=== PATIENT | female | born 1940 | race Caucasian/White ===

== ENCOUNTER → 2016-08-14 | Outpatient (CLI) | payer OTHER | END | disposition home or self-care (01) | LOC: YCFC.O 08:12 | PROVIDERS: ATTEND Nurse Practitioner Family | DX: E78.2 Mixed hyperlipidemia (principal); J44.9 Chronic obstructive pulmonary disease, unspecified; I63.9 Cerebral infarction, unspecified; Z13.29 Encounter for screening for other suspected endocrine disorder ==

== ENCOUNTER 2016-09-07 21:28 | Inpatient (IN) | payer OTHER ==
[2016-09-07] MEDS ORDERED: SODIUM CHLORIDE 0.9% 1000ML 500 ML IVS ONE (21:40)
--- NOTE | 2016-09-07 22:05 | ED.PDOC ---
History of Present Illness - General Chief Complaint: Respiratory Problem Stated Complaint: fever and short of breath Time Seen by Provider: 09/07/16 21:36 Source: patient, RN notes reviewed, Vital Signs reviewed, family Additional Information: 3 days of fever and cough. Pt has a history of COPD and she is a vasculopath (h/ o CVA and Femoral Artery Bypass Surgery in the past). Pt brought to ER by her niece who is an ANIMAL RESEARCHER and states that Pt's POX on RA at home was 86%. Pt with intermittent cough. - History of Present Illness Timing/Duration: other - 3 to 4 days Severity: moderate Improving Factors: nothing Worsening Factors: movement Associated Symptoms: cough, fever/chills Review of Systems - Review of Systems Constitutional: States: see HPI, fever EENTM: States: no symptoms reported Respiratory: States: see HPI, cough Cardiology: States: no symptoms reported Gastrointestinal/Abdominal: States: no symptoms reported Genitourinary: States: no symptoms reported Musculoskeletal: States: no symptoms reported Skin: States: no symptoms reported Neurological: States: no symptoms reported Endocrine: States: no symptoms reported Hematologic/Lymphatic: States: no symptoms reported Past Medical History (General) - Patient Medical History Hx of COPD: Yes Physical Exam - Physical Exam General Appearance: Alert, Comfortable, Frail Eye Exam: bilateral normal Ears, Nose, Throat: hearing grossly normal, normal ENT inspection, normal pharynx Neck: non-tender, full range of motion, supple, normal inspection Respiratory: decreased breath sounds - in right base, rhonchi - occasional Cardiovascular/Chest: tachycardia Gastrointestinal/Abdominal: non tender, soft Back Exam: normal inspection Extremity: normal range of motion, non-tender Neurologic: registered veterinary technician II-XII nml as tested, no motor/sensory deficits, alert, normal mood/affect, oriented x 3 Skin Exam: normal color Lymphatic: no adenopathy Progress - Progress Progress: 09/07/16 22:46 Patient with signs and symptoms consistent with Pneumonia. Will treat with antibiotics, steroids, and IV fluids and call Hospitalist for admission given Pt's age, clinical condition, and comorbidities. - Results/Orders Results/Orders: 09/07/16 21:39 BLOOD CULTURE Stat 09/07/16 21:40 URINALYSIS Stat 09/07/16 22:32 cefTRIAXone SODIUM [Rocephin] 1 gm Sodium Chl 0.9% 50Ml Min-Bag+ [NS 50ml MINI -BAG+] 50 ml IVPB ONCE 09/07/16 22:41 ED Intent to Admit Routine Laboratory Results - last 24 hr 09/07/16 09/07/16 09/07/16 21:57 21:57 21:57 WBC 26.5 H* RBC 4.28 Hgb 10.7 L Hct 32.7 L MCV 76.5 L MCH 25.0 L MCHC 32.8 L RDW 17.7 H Plt Count 433 H MPV 7.4 Absolute Neuts (auto) Not Reportable Absolute Lymphs (auto) Not Reportable Absolute Monos (auto) Not Reportable Absolute Eos (auto) Not Reportable Neutrophils % Not Reportable Neutrophils % (Manual) 91.0 Lymphocytes % Not Reportable Lymphocytes % (Manual) 6.0 Monocytes % Not Reportable Monocytes % (Manual) 2.0 Eosinophils % Not Reportable Basophils % Not Reportable Band Neutrophils 1.0 Hypochromia 1+ Platelet Estimate Increased Microcytosis 1+ Sodium 137 Potassium 4.4 Chloride 104 Carbon Dioxide 22 Anion Gap 15.4 BUN 37 H Creatinine 1.41 H BUN/Creatinine Ratio 26.2 H Random Glucose 129 H Serum Osmolality 284.2 Lactic Acid 1.7 Calcium 8.8 Total Bilirubin 0.7 AST 25 ALT 19 Alkaline Phosphatase 83 Serum Total Protein 7.7 Albumin 3.1 L Globulin 4.6 H Albumin/Globulin Ratio 0.7 L - EKG/XRAY/CT XRAY: chest - Right lower lung field consolidation Departure - Departure Clinical Impression: Acute kidney injury Pneumonia, organism unspecified Qualifiers: Laterality: right Lung location: lower lobe of lung Qualified Code(s): J18.9 - Pneumonia, unspecified organism COPD (chronic obstructive pulmonary disease) Qualifiers: COPD type: emphysema Emphysema type: unspecified Qualified Code(s): J43.9 - Emphysema, unspecified Time of Disposition: 22:49 Disposition: Admit Patient Referrals: Mai Yang NP [Primary Care Provider] - 1-2 Weeks Decision To Admit - Decistion To Admit Decision to Admit Reason: Medical Nature - Pneumonia Decision to Admit Date: 09/07/16 Decision to Admit Time: 22:41
--- NOTE | 2016-09-07 22:10 | RAD ---
EXAM DESCRIPTION: Chest,2 Views CLINICAL HISTORY: fever and short of breath COMPARISON: None FINDINGS: Cardiac silhouette is within normal limits. Abnormal opacity of the right lower lung could be secondary to collapse/atelectasis. Endobronchial lesion cannot be excluded. This could also be secondary to an infectious process. Recommend short-term follow-up. EKG leads project over the chest. Nodular-like opacity projecting inferior to the nine left posterior rib could represent patient's nipple shadow. Recommend follow-up. There is no acute osseous process visualized. IMPRESSION: Abnormal opacity at the right lower lung suggests collapse/atelectasis. This could be secondary to an endobronchial lesion versus mucous secretions. Other etiologies including an infectious process are consideration. Short-term follow-up recommended. Electronically signed by: Gregorio Vaughn MD 09/07/2016 10:09 PM CDT
[2016-09-07] MEDS ORDERED: AZITHROMYCIN 250 MG TAB PO ONE (22:32)
[2016-09-07] MEDS ORDERED: cefTRIAXone SODIUM 1 GM in SODIUM CHL 0.9% 50ML MIN-BAG+ 50 ML IVPB ONE (22:32)
[2016-09-07] MEDS ORDERED: methylPREDNISolone SODIUM SUC 125 MG/2 ML VIAL IV ONE (22:41)
[2016-09-07] MEDS ORDERED: cefTRIAXone SODIUM 1 GM VIAL ONE (22:44)
[2016-09-07] MEDS ORDERED: SODIUM CHL 0.9% 50ML MIN-BAG+ 50 ML IVPB ONE (22:44)
--- NOTE | 2016-09-07 22:55 | HP ---
SUPERVISING PHYSICIAN: Scotty Estevez MD CHIEF COMPLAINT: Fever and cough. HISTORY OF PRESENT ILLNESS: This is a 75 year-old female patient who recently moved to [place] from [place]. She is staying with her niece. She has never been and has no children. Her niece was a longtime COMMUNICATION CONSULTANT at [facility]. The patient reports that on Friday she started feeling poorly , she had a low grade temperature of 99 and was rather lethargic. She slept most of the day and that is not usual for her. Niece went out of town for about 24 hours and this afternoon when her niece returned from her trip her fever was quite high, they thought well over 100 and her oxygen saturations were 86% at home. She was having hazy vision and had a wet cough but could not cough anything up. She was very short of breath. Her niece reported she was tachypneic. She has a significant history of chronic obstructive pulmonary disease as well as a long-term smoker and she brought her to the Emergency Room. In the Emergency Room the patient was found to have a white count of 26.5 and her BUN was 37, creatinine was 1.40. She received 500 cc of normal saline. Her chest x-ray showed she had a right lower lobe pneumonia. She was given 125 mg of Solu-Medrol and she was given 1 gram of Rocephin as well as 500 mg of azithromycin. In the Emergency Room, her vital signs showed a temperature of 99.6, heart rate 108, blood pressure 93/60, respiratory rate 22, oxygen saturation 94% on 2 liters nasal cannula. I was called for hospital admission. PAST MEDICAL HISTORY: 1. Chronic obstructive pulmonary disease. 2. Hypertension. 3. Stroke with right-sided weakness about 3 years ago. 4. Hyperlipidemia. 5. Basal cell carcinoma on the forehead. PAST SURGICAL HISTORY: 1. Carotid endarterectomy. 2. Femoral artery bypass surgery. CURRENT MEDICATIONS: Per EMR and awaiting verification. ALLERGIES: NO KNOWN DRUG ALLERGIES. SOCIAL HISTORY: She lives with her niece, she has recently moved form [place]. She is single, she has no children. She has smoked half pack of cigarettes per day for well over 30 years. She denies any ETOH or illicit drug use. REVIEW OF SYSTEMS: GENERAL: Positive for fever and fatigue. Negative for weight changes. HEENT: Positive for vision changes, negative for sinus symptoms, ear pain or sore throat. RESPIRATORY: Positive for wheezing, coughing and shortness of breath. CARDIAC: Positive for palpitations, although she has not had any in the last day or so but negative for chest pain or tachycardia. GASTROINTESTINAL: Negative for abdominal pain, nausea, vomiting, diarrhea or constipation. SKIN: Positive for basal cell carcinoma on her forehead. She is currently being treated for this as well as an SK on her back. EXTREMITIES: Denies swelling. NEUROLOGICAL: Negative for headache, seizures or dizziness. PHYSICAL EXAMINATION: VITAL SIGNS: Temperature 101.3, heart rate 86, blood pressure 168/61, respiratory rate 20, 02 saturation 94%. GENERAL: This is a 75 year-old female patient who is lying in her hospital bed. HEENT: Normocephalic and atraumatic. Pupils equal and reactive. Oropharynx is clear. Oral mucous membranes are moist. She has poor dentition. NECK: Supple without masses. There is no right jugular venous distention. Trachea is midline. CHEST: Bilateral rhonchi with some diffuse expiratory wheezing and diminished at the bases, more prominently on the right lower lobes. CARDIOVASCULAR: Regular rate and rhythm. ABDOMEN: Soft, non-tender, nondistended. Bowel sounds are positive. EXTREMITIES: No cyanosis, clubbing, or edema. NEUROLOGIC: She is awake, alert and oriented x3. SKIN: She has a healing scabbed area in her center forehead. LABORATORY: BUN 37, creatinine 1.41, glucose 129. WBC 26,500, hemoglobin 10.7, hematocrit 32.7, platelet count 433,000. Urinalysis has not been collected. Chest x-ray shows abnormal opacity in the right lower lung suggesting collapse or atelectasis and could be secondary to endobronchial lesion versus mucus secretions and other etiologies include infectious process, Her chest x-ray was per radiology interpretation. All other labs and films have been reviewed via the EMR. ASSESSMENT: 1. Right lower lobe pneumonia most likely community acquired with consideration of strep pneumonia and will be awaiting blood culture and sputum culture. 2. Acute on chronic obstructive pulmonary disease exacerbation. 3. Fever up to 101.3, most likely due to #1. 4. Leukocytosis, most likely due to #1 but awaiting flu swab results. 5. Acute renal failure with no history of any renal insufficiency. 6. Mild thrombocytopenia. 7. Hypertension. 8. History of CVA. 9. Hyperlipidemia. 10. Basal cell carcinoma. 11. History of palpitations with heart rate reported up to 150 [id number] per family members. PLAN: We will admit the patient to the hospital. I have done a flu swab. We have initiated the pneumonia protocol. I have started PPI for ulcer prophylaxis and Lovenox for DVT prophylaxis. I will order an EKG to get a baseline of her cardiac rhythm. I have ordered a sputum culture. We will culture her urine when it is received. Continue the Rocephin and azithromycin. I will give her 1 liter of normal saline and maybe we can improve her renal function. Give her some Mucinex as well as some Tessalon Perles. Breathing treatments have been ordered. She received some steroids in the Emergency Room. I will not order those until in the morning and she may need some additional doses of steroids. We will evaluate that in the morning. We will continue to monitor the patient closely and followup as needed. Dr. Estevez is the collaborating physician and available for consultation. #[id number] [facility]
[2016-09-08] MEDS ORDERED: LEVALBUTEROL NEBS 1.25 MG/3 ML VIAL NEB PRN (00:11)
[2016-09-08] MEDS ORDERED: SODIUM CHLORIDE 0.9% (FLUSH) 10 ML SYG IV PRN ×2 (00:11→00:18)
[2016-09-08] MEDS ORDERED: ONDANSETRON INJ 4 MG/2 ML VIAL IV PRN (00:22)
[2016-09-08] MEDS ORDERED: ACETAMINOPHEN 325 MG TAB PO PRN (00:22)
[2016-09-08] MEDS ORDERED: IPRATROPIUM/ALBUTEROL 3 ML VIAL INH SCH (00:30)
[2016-09-08] MEDS ORDERED: IV SET AND CAP CHANGE INJ INJ SCH ×2 (00:30)
[2016-09-08] MEDS ORDERED: DEXTROSE 50% 25 GM/50 ML SYG IV PRN (00:31)
[2016-09-08] MEDS ORDERED: GLUCAGON INJ 1 MG VIAL SUBCU PRN (00:31)
[2016-09-08] MEDS ORDERED: SODIUM CHLORIDE 0.9% 1000ML 1,000 ML IVS PRN (00:36)
[2016-09-08] MEDS ORDERED: ENOXAPARIN SODIUM 30 MG/0.3 ML SYG SUBCU SCH ×2 (01:00→21:00)
[2016-09-08] MEDS: BENZONATATE PERLES 100 MG CAP PO PRN (01:45)
[2016-09-08] MEDS: guaiFENesin ER TAB 600 MG TAB PO SCH ×2 (01:46→08:48)
[2016-09-08] MEDS: PANTOPRAZOLE SODIUM IV 40 MG VIAL IV SCH (06:27)
[2016-09-08] MEDS: INSULIN LISPRO 100 UNITS/ML PEN SUBCU SCH ×4 (08:23→22:01)
[2016-09-08] MEDS: IPRATROPIUM/ALBUTEROL 3 ML VIAL NEB SCH ×4 (08:25→19:25)
[2016-09-08] MEDS ORDERED: cefTRIAXone SODIUM 1 GM VIAL ONE (08:25)
[2016-09-08] MEDS ORDERED: SODIUM CHL 0.9% 50ML MIN-BAG+ 50 ML IVPB ONE (08:25)
--- NOTE | 2016-09-08 08:33 | RAD ---
PROCEDURE: Chest,2 Views CLINICAL HISTORY: Pneumonia INDICATION: Same as above COMPARISON: 09/07/2016 TECHNIQUE: PA and and lateral chest radiographs were obtained. FINDINGS: There is a large opacity abutting the right cardiac contour and seen in the expected location of the right lower lobe of the lung and suspicious for right lower lobe atelectasis and less likely an infiltrate. This finding remains unchanged and needs to be further assessed with a CT of the chest to rule out an endobronchial lesion being responsible for this finding There are no pleural effusions or pneumothoraces The cardiomediastinal silhouette is otherwise unremarkable for patient's age and sex. IMPRESSION: There is a large opacity abutting the right cardiac contour and seen in the expected location of the right lower lobe of the lung and suspicious for right lower lobe atelectasis and less likely an infiltrate. This finding remains unchanged and needs to be further assessed with a CT of the chest to rule out an endobronchial lesion being responsible for this finding Electronically signed by: Joseph Johnson MD 09/08/2016 8:32 AM CDT
--- NOTE | 2016-09-08 10:10 | PCM.CORE ---
Physician DVT/VTE - Prophylaxis Currently: Patient already on anticoagulation therapy - Nurse DVT Assessment & Total Each Risk Factor Represents 3 Points: Age over 75 years DVT Assessment Score: 3 - 3-4 High Risk Treatments: Early Ambulation *, Sequential Compression Device
[2016-09-08] MEDS: CLOPIDOGREL 75 MG TAB PO SCH (10:51)
[2016-09-08] MEDS: LISINOPRIL 10 MG TAB PO SCH (10:51)
[2016-09-08] MEDS: cefTRIAXone SODIUM 1 GM in SODIUM CHL 0.9% 50ML MIN-BAG+ 50 ML IVPB SCH (10:53)
[2016-09-08] MEDS: methylPREDNISolone SODIUM SUC 40 MG/ML VIAL IV SCH ×2 (15:33→20:30)
--- NOTE | 2016-09-08 16:27 | PN ---
DATE: 09/08/16 SUPERVISING PHYSICIAN: Scotty Estevez M.D. SUBJECTIVE: The patient is sitting up in her hospital bed. She states she is feeling much better. She had a very good night's sleep. She denies any chest pain, shortness of breath, nausea, vomiting, diarrhea or fever. OBJECTIVE: She is afebrile, but she had 101.3 at midnight last night. Heart rate 61, blood pressure 117/71, respiratory rate 18, oxygen saturation has ranged between 92 and 98%. RESPIRATORY: She does have a few expiratory wheezes especially in the left apices and she is still somewhat diminished on the right lower lobe. CARDIAC: Mostly irregular rhythm, occasionally has started having an irregular rhythm that looks like sinus rhythm with PACs and occasional PVCs. Normal rate. ABDOMEN: Soft, nondistended, non-tender. Bowel sounds are positive. EXTREMITIES: No cyanosis, clubbing or edema. NEUROLOGIC: She is awake, alert and oriented times three. LABORATORY: WBCs have dropped to 23.9, hemoglobin is stable at 10.7 as well as hematocrit is 33.7, platelets have normalized at 393. Sodium 137, potassium 4.4 , chloride 106, carbon dioxide 22, BUN 33, creatinine has normalized at 1.16, blood glucose 150. Urine shows 100 urine protein, trace of lysed urine blood, moderate leukocyte esterase and greater than 50 WBCs. Flu swab was negative. Preliminary blood cultures are negative to date and we are still awaiting her urine culture. Chest x-ray per radiology interpretation shows there is a large opacity abutting the right cardiac contour and seen in the expected location of the right lower lobe of the lung and suspicious for right lower lobe atelectasis and less likely for an infiltrate. This finding remains unchanged and needs to be further assessed with a CT of the chest to rule out an endobronchial lesion being responsible for this finding. All other labs and films have been reviewed via the EMR. ASSESSMENT: 1. Right lower lobe pneumonia most likely community acquired with consideration of strep pneumonia and will be awaiting blood culture and sputum culture. 2. Acute on chronic obstructive pulmonary disease exacerbation. 3. Fever up to 101.3, most likely due to #1. 4. Leukocytosis, most likely due to #1 but awaiting flu swab results. 5. Acute renal failure with no history of any renal insufficiency. 6. Mild thrombocytopenia. 7. Hypertension. 8. History of CVA. 9. Hyperlipidemia. 10. Basal cell carcinoma. 11. History of palpitations with heart rate reported up to 150 [id number] per family members presently showing sinus rhythm with PACs and occasional PVCs with rates in the 60s per school lunch monitor. PLAN: We will continue present supportive care, including her antibiotics. She is showing clinical improvement daily. She needs a CT of the chest and since she has been sick with fever I have not ordered that as yet, but hopefully we can do that tomorrow. I am not sure if they want it with or without contrast but her renal function has normalized. I have continued her home medications. I have ordered routine labs. She is getting a low dose of Solu-Medrol overnight and I have started her on oral prednisone tomorrow morning. We will continue to monitor the patient closely and followup as clinically indicated. Dr. Estevez is the collaborating physician available for consultation. #[id number] [facility] CENTERMoustapha
[2016-09-08] MEDS ORDERED: AZITHROMYCIN 250 MG TAB PO SCH (21:00)
[2016-09-08] MEDS ORDERED: SIMVASTATIN 10 MG TAB PO SCH (21:00)
[2016-09-09] MEDS ORDERED: SODIUM CHL 0.9% 50ML MIN-BAG+ 50 ML IVPB ONE ×2 (00:20→08:00)
[2016-09-09] MEDS ORDERED: cefTRIAXone SODIUM 1 GM VIAL ONE ×2 (00:21→08:00)
[2016-09-09] MEDS: cefTRIAXone SODIUM 1 GM in SODIUM CHL 0.9% 50ML MIN-BAG+ 50 ML IVPB SCH ×3 (00:23→10:16)
[2016-09-09] MEDS: BENZONATATE PERLES 100 MG CAP PO PRN (01:13)
[2016-09-09] MEDS: guaiFENesin ER TAB 600 MG TAB PO SCH ×2 (01:26→10:19)
[2016-09-09] MEDS ORDERED: methylPREDNISolone SODIUM SUC 40 MG/ML VIAL ONE (05:25)
[2016-09-09] MEDS: methylPREDNISolone SODIUM SUC 40 MG/ML VIAL IV SCH (05:26)
--- NOTE | 2016-09-09 06:52 | RAD ---
Procedure: XR CHEST 2 VIEWS Exam Date: 09/09/2016 Ordering Provider: REGGIE GUERRERO Clinical Indication: Pneumonia Comparison: 09/08/2016 Findings: Cardiac silhouette: Within normal limits Pulmonary vasculature : Normal Mediastinal contour: Normal Aortic contour: Normal Focal lung consolidation: Stable opacity adjacent to the right heart border which is felt to represent right lower lobe atelectasis. Left basilar atelectasis and/or infiltrate slightly more apparent on today's exam. Pleural effusion: No significant Pneumothorax: None Acute bony or soft tissue abnormality: None Impression: 1. Stable opacity adjacent to the right heart border which is felt to represent right lower lobe atelectasis. 2. Left basilar atelectasis and/or infiltrate slightly more apparent on today's exam. 3. No other significant interval change. Electronically signed by: Cam Barker MD 09/09/2016 6:51 AM CDT
[2016-09-09] MEDS: INSULIN LISPRO 100 UNITS/ML PEN SUBCU SCH (07:30)
[2016-09-09 08:28] VITALS: O2SAT 97
[2016-09-09] MEDS: CLOPIDOGREL 75 MG TAB PO SCH (08:45)
[2016-09-09] MEDS: PANTOPRAZOLE SODIUM IV 40 MG VIAL IV SCH (08:46)
[2016-09-09] MEDS: LISINOPRIL 10 MG TAB PO SCH (08:46)
[2016-09-09] MEDS: IPRATROPIUM/ALBUTEROL 3 ML VIAL NEB SCH ×2 (08:50→12:00)
[2016-09-09] MEDS ORDERED: predniSONE 20 MG TAB PO SCH (09:00)
--- NOTE | 2016-09-09 10:01 | CT ---
CT chest with contrast CLINICAL HISTORY: Right lower lobe infiltrate/mass TECHNIQUE: Contrast-enhanced spiral CT with intravenous iodinated nonionic contrast. Coronal and sagittal reformatted images. This exam was performed according to our departmental dose-optimization program, which includes automated exposure control, adjustment of the mA and/or kV according to patient size and/or use of iterative reconstruction technique. COMPARISON: Plain radiograph 09/09/2016 and 09/08/2016 FINDINGS: Complete occlusion of the right lower lobe bronchus just distal to the right middle lobe bifurcation. Consolidation and atelectasis right lower lobe. Most of the right lower lobe demonstrates contrast enhancement related to atelectasis. There are a couple of low-density foci in the lung or proximal and there is low-density centrally in the bronchus. A slightly rounded contour at the right hilum on image 30 may be adenopathy or mass There are a few small subcentimeter mediastinal lymph nodes. No bulky hilar adenopathy otherwise. A tiny nodule in the left upper lobe superior lingula measures about 5 x 3 mm on image 21. There is no other pulmonary nodule. No other infiltrate edema or effusion Atherosclerotic aorta. Normal heart size. No mass or adenopathy in the visualized upper abdomen No lytic or blastic bony lesion or other acute bony abnormality IMPRESSION: Atelectasis/consolidation right lower lobe. Bronchial obstructing lesion could be mucous plugging or neoplastic mass. No measurable neoplastic mass identified. Recommend endoscopy to evaluate etiology.. Electronically signed by: Magdaleno Haddad MD 09/09/2016 9:59 AM CDT
[2016-09-09 12:03] VITALS: BP 82/54; TEMP 97.8
--- NOTE | 2016-09-09 13:42 | DS ---
DISCHARGE DIAGNOSIS: 1. Acute right lower lobe pneumonia, probable community acquired, being treated with azithromycin and ceftriaxone parenterally with negative cultures thus far. 2. Acute complete obstruction of the right lower lobe bronchus, requiring pulmonology service intervention to assist with opening a significantly collapsed atelectatic right lower lobe which will require removal of the obstruction to assist with the underlying treatment course. The patient is being transferred to [facility] in [place] for pulmonology consultation and intervention as indicated. 3. Chronic obstructive pulmonary disease with acute exacerbation, currently on bronchodilators, corticosteroids, and antibiotic coverage, and, again, strongly encouraged to stop all smoking. 4. Febrile illness with temperature 101.3, now afebrile, showing some improvement. 5. Leukocytosis, persisting, possibly somewhat maintained because of the introduction of corticosteroid as well as underlying significant pneumonia infectious condition. 6. Acute renal failure, showing some improvement with hydration. 7. Mild thrombocytopenia. 8. History of hypertension, now presenting occasionally with hypotensive episode. 9. History of cerebrovascular accident with right sided weakness from three years ago. 10. History of hyperlipidemia. 11. History of a basal cell carcinoma of the mid forehead, having been surgically excised recently. 12. History of palpitations, currently stable at this time. HISTORY OF PRESENT ILLNESS: This 75-year-old, white female has recently moved from [place] to [place] to be closer to nieces and nephews since she does not have any other closer family members. She has a history of being a chronic smoker who has had some emphysema in the past, now coming down with acute febrile illness noted in the Emergency Room to be a right lower lobe infiltrate and to be treated as a community acquired illness. Because of the significant consolidation noted in the right lower lobe and its extensive nature, CT scan is performed on the morning of discharge, showing complete obstruction of the right lower lobe bronchi, requiring pulmonary intervention to assist with the resolution of this significant condition. She was started on ceftriaxone twice a day and azithromycin daily in an effort to treat this community acquired illness with some improvement in the underlying fever noted. Saturation stayed fairly good during her hospital course. There is a variation in blood pressure during portions of her hospital stay which will require ongoing close management and followup. Initial dosings of fluids showed some improvement in her general vascular status. LABORATORY: White count stayed elevated from 26,500 with 91% neutrophils up to 28,000 with 92% neutrophils and 2% bands. Hemoglobin dropped with hydration from 10.7 to 9.2 with a microcytic/hypochromic presentation. Platelet count was normal at 399,000. Chemistries showed potassium 4, BUN initially 37, down to 36, and creatinine 1.41, down to 1.35. Glucose 137 at discharge. Calcium 8.2. Lactic acid 1.7. Albumin 3.1, down to 2.7 and 2.5. Urinalysis shows some proteinuria, hematuria and pyuria with 1+ bacteruria. Urine culture with insignificant colony count of a mixed naya being noted. Blood cultures were negative at 24 hours and influenza was negative as well. Chest x-ray initially showed abnormal opacity in the right lower lung, suggesting atelectasis with close followup suggested. Repeat on the morning of discharge showed chest x- ray with persistence of the opacity in the right lower lobe, suggesting atelectasis, yet now with a left basilar atelectasis and/or infiltrate also present on the morning's exam. Because of the significant opacification of the right lower lobe, a CT scan of the chest was performed on the morning of discharge and showed complete occlusion of the right lower lobe bronchus distal to the right middle lobe bifurcation with consolidation and atelectasis of the right lower lobe. Possible adenopathy or mass to be considered. A few subcentimeter mediastinal lymph nodes present. Tiny nodule noted in the left upper lobe. Atherosclerotic changes are noted. HOSPITAL COURSE: The patient's condition showed some improvement with the fever return towards afebrile state. Blood pressure was still recorded up and down in nature. The patient is otherwise awake and alert and communicative and was otherwise stable. The patient is scheduled for a transfer to [facility] in [place] for pulmonary consultation because of the significant right lower lobe bronchial obstructive process requiring further intervention for diagnostic as well as therapeutic reasons. PLAN: The patient is transferred by EMS to [facility] in [place]. She is accepted by Dr. Degroot at 11:15 AM and will be admitted to Room 809. Pulmonary consultation will be obtained and the patient would benefit by pulmonary intervention as possible. She is again strongly encouraged to stop all smoking. She will need the usual bronchial hygiene. She will have followup after discharge at [facility]. She is encouraged to stop all smoking. Return if not improving. #[id number] [facility]
== END 2016-09-09 12:25 | disposition short-term general hospital (02) | DRG 190 ==
LOC: ER 21:28 → OBSVTOIN 22:54 → MS 22:54
PROVIDERS: ADMIT Nurse Practitioner Acute Care; ATTEND Emergency Medicine
DX: J44.0 Chronic obstructive pulmonary disease with (acute) lower respiratory infection (principal); J18.9 Pneumonia, unspecified organism; I69.351 Hemiplegia and hemiparesis following cerebral infarction affecting right dominant side; N17.9 Acute kidney failure, unspecified; I10 Essential (primary) hypertension; E78.5 Hyperlipidemia, unspecified; F17.210 Nicotine dependence, cigarettes, uncomplicated; J44.1 Chronic obstructive pulmonary disease with (acute) exacerbation; D69.6 Thrombocytopenia, unspecified; J98.4 Other disorders of lung

== ENCOUNTER 2016-10-12 14:28 | Emergency (ER) | payer MEDICARE, MEDICAID ==
--- NOTE | 2016-10-12 14:58 | ED.PDOC ---
History of Present Illness - General Chief Complaint: General Stated Complaint: Intermittent left lower rib pain Time Seen by Provider: 10/12/16 14:47 Source: patient, RN notes reviewed, Vital Signs reviewed, family Additional Information: Pt brought to ER by her niece with whom she lives due to acute onset of unprovoked left lower rib pain that woke her from sleep this am. She denies any recent trauma. Of note, she was recently diagnosed with lung cancer based on bronchoscopy performed on September 25. She is pending a biopsy for tissue confirmation scheduled on October 26. Pt denies pain currently. She states the initial bout this am lasted several minutes. She had another bout this afternoon before dinner that lasted several minutes. She is currently pain free. Activity at onset was rest, playing games on her tablet. Currently Pt is pain free. No reproducible pain. No distress currently. - History of Present Illness Timing/Duration: 4-6 hours, intermittent Severity: moderate Improving Factors: nothing Worsening Factors: nothing Associated Symptoms: denies symptoms Allergies/Adverse Reactions: Allergies NO KNOWN ALLERGY Allergy (Verified 09/07/16 22:43) Home Medications: Ambulatory Orders Clopidogrel Bisulfate [Plavix] 75 mg PO QD 09/07/16 Lisinopril 20 mg PO DAILY 09/07/16 Lovastatin 20 mg PO BEDTIME 09/07/16 Azithromycin Tab [Zithromax Tab] 500 mg PO BEDTIME 09/09/16 cefTRIAXone SODIUM [Rocephin] 1 gm IVPB Q12H 09/09/16 Review of Systems - Review of Systems Constitutional: States: no symptoms reported EENTM: States: no symptoms reported Respiratory: States: no symptoms reported Cardiology: States: see HPI - Left lower rib intermittent pain Gastrointestinal/Abdominal: States: see HPI - Intermittent sharp pain located in anterior left upper abdominal region/left lower chest region. Genitourinary: States: no symptoms reported Musculoskeletal: States: no symptoms reported Skin: States: no symptoms reported Neurological: States: no symptoms reported Endocrine: States: no symptoms reported Hematologic/Lymphatic: States: no symptoms reported Past Medical History (General) - Patient Medical History Hx Seizures: No Hx Stroke: Yes Hx Asthma: No Hx of COPD: Yes Hx Congestive Heart Failure: No Hx Pacemaker: No Hx Hypertension: Yes Hx Diabetes: No Hx Cancer: Yes - BASEL CELL CA and recently diagnosed with Lung CA Hx MRSA: No - Vaccination History Hx Tetanus, Diphtheria Vaccination: No Hx Influenza Vaccination: No Hx Pneumococcal Vaccination: Yes - Social History Hx Tobacco Use: Yes - at least 5 cigs/day for over 50 years Hx Alcohol Use: No Hx Substance Use: No Hx Physical Abuse: No Hx Emotional Abuse: No Family Medical History - Family History Mother Family History: Unknown Living Status: Hx Family Asthma: No Hx Family Congestive Heart Failure: Yes Hx Family Hypertension: Yes Hx Family Stroke: No Hx Cardiac Disease: Yes Hx Family Diabetes: No Hx Family Cancer: No Physical Exam - Physical Exam General Appearance: Alert, Comfortable, Frail, No apparent distress Eye Exam: bilateral normal Ears, Nose, Throat: hearing grossly normal, normal ENT inspection, normal pharynx Neck: non-tender, full range of motion, supple, normal inspection Respiratory: chest non-tender, lungs clear, normal breath sounds, no respiratory distress, no accessory muscle use Cardiovascular/Chest: normal peripheral pulses, regular rate, rhythm, no edema, no murmur Gastrointestinal/Abdominal: non tender, soft Extremity: normal range of motion, non-tender Neurologic: operations vice president II-XII nml as tested, no motor/sensory deficits, alert, normal mood/affect, oriented x 3, depressed affect Skin Exam: normal color Lymphatic: no adenopathy Progress - Progress Progress: 10/12/16 16:29 Unknown etiology for pain at this time. However, Pt is pain free and nontender on exam. Given recent history of cancer diagnosis this may be a neoplastic, osteoclastic , or vascular problem. Will assess with routine labs and imaging to try and identify an etiology for her symptoms. 10/12/16 16:41 CT Chest with Contrast: No evidence of pulmonary embolus THICKENING ALONG THE RIGHT LOWER LOBE BRONCHUS WITH ASSOCIATED ILL-DEFINED SOFT TISSUE DENSITY THAT MAY REFLECT THE KNOWN NEOPLASM. THERE IS PERSISTENT CONSOLIDATION AND ATELECTASIS OF THE RIGHT LOWER LOBE Mildly prominent right hilar lymph nodes unchanged Stable left upper lobe elliptical nodule Emphysematous change 10/12/16 16:[address] Scan reviewed with patient and family. No pain currently. Pt stable for discharge home. - Results/Orders Results/Orders: 10/12/16 14:57 IV Care:Heplock per Protocol QSHIFT 10/12/16 15:36 CTA Chest [CT] Stat 10/12/16 15:40 Sodium Chloride 0.9% 1000ML [Ns 1000 ml] 1,000 ml IVS ONCE Laboratory Results - last 24 hr 10/12/16 10/12/16 10/12/16 15:05 15:05 15:05 WBC 8.5 RBC 4.68 Hgb 12.0 Hct 37.3 MCV 79.8 L MCH 25.6 L MCHC 32.0 L RDW 20.2 H Plt Count 278 MPV 7.5 Absolute Neuts (auto) 6.30 Absolute Lymphs (auto) 1.30 Absolute Monos (auto) 0.70 Absolute Eos (auto) 0.10 Absolute Basos (auto) 0.00 Neutrophils % 73.7 Lymphocytes % 15.7 L Monocytes % 8.8 Eosinophils % 1.3 Basophils % 0.5 D-Dimer, Quantitative 625 H* Sodium 141 Potassium 3.6 Chloride 105 Carbon Dioxide 29 Anion Gap 10.6 L BUN 28 H Creatinine 1.08 BUN/Creatinine Ratio 25.9 H Random Glucose 104 Serum Osmolality 287.0 Calcium 8.5 Total Bilirubin 0.2 AST 22 ALT 18 Alkaline Phosphatase 80 Creatine Kinase 39 CK-MB (CK-2) 2.5 CK-MB (CK-2) % Not Reportable Troponin I 0.02 Serum Total Protein 6.7 Albumin 3.3 Globulin 3.4 Albumin/Globulin Ratio 1.0 L - EKG/XRAY/CT CT: No evidence of pulmonary embolus Departure - Departure Clinical Impression: Intermittent chest pain Time of Disposition: 16:55 Disposition: Discharge to Home or Self Care Condition: Fair Departure Forms: ED Discharge - Pt. Copy, Patient Portal Self Enrollment Referrals: Mai Yang NP [Primary Care Provider] - 1-2 Weeks Home Medications: Ambulatory Orders Clopidogrel Bisulfate [Plavix] 75 mg PO QD 09/07/16 Lisinopril 20 mg PO DAILY 09/07/16 Lovastatin 20 mg PO BEDTIME 09/07/16 Azithromycin Tab [Zithromax Tab] 500 mg PO BEDTIME 09/09/16 cefTRIAXone SODIUM [Rocephin] 1 gm IVPB Q12H 09/09/16 Additional Instructions: Return to ER if condition worsens. Review CT Scan findings with your Hydraulics Teacher.
[2016-10-12] MEDS ORDERED: SODIUM CHLORIDE 0.9% 1000ML 1,000 ML IVS ONE (15:40)
[2016-10-12] MEDS ORDERED: NEOMYCIN-BACITRACIN-POLYMYXIN 0.9 GM UD TOP ONE (16:01)
[2016-10-12 16:25] VITALS: TEMP 96.9
--- NOTE | 2016-10-12 16:32 | CT ---
PROCEDURE: CTA Chest CLINICAL HISTORY: 75 years Female rule out PE shortness of breath, cancer of the right bronchus COMPARISON: 09/09/2016 TECHNIQUE: Contiguous axial images obtained through the chest during the infusion of IV contrast. Reformatted images obtained. 3-D MIP reformatted images obtained. This exam was performed according to our department optimization program which includes automated exposure control, adjustment of the mA and/or kv according to patient size and/or use of iterative reconstruction technique. FINDINGS: Thoracic aorta is normal in caliber without evidence of dissection or rupture. Scattered areas of calcification are present throughout the aorta with calcifications also noted in the coronary arteries and in branches of the upper abdominal aorta. Persistent fluid-filled bronchi to the right lower lobe with atelectasis and consolidation in the right lung base. There appears to be a greater degree of compression of the right lower lobe as compared to the previous study with interval hyperexpansion of the right upper and middle lobe. There is a small amount of adjacent fluid along the right lung base. Suspect small amount of right hilar adenopathy with short axis measurement 1.3 cm. There appears to be some wall thickening in the right lower lobe bronchus as well as an ill-defined hyperdense ovoid area along the posterior and inferior aspect of the right hilum which may represent patient's known malignancy. There is some adjacent subcarinal adenopathy present. Main pulmonary arteries appear normal in caliber. No filling defects are noted to suggest pulmonary emboli. Emphysematous changes are present. No additional foci of consolidation are noted. There is a stable elliptical nodule in the lateral aspect of the left upper lobe measuring 7 x 4 mm. Gallbladder is contracted. IMPRESSION:No evidence of pulmonary embolus THICKENING ALONG THE RIGHT LOWER LOBE BRONCHUS WITH ASSOCIATED ILL-DEFINED SOFT TISSUE DENSITY THAT MAY REFLECT THE KNOWN NEOPLASM. THERE IS PERSISTENT CONSOLIDATION AND ATELECTASIS OF THE RIGHT LOWER LOBE Mildly prominent right hilar lymph nodes unchanged Stable left upper lobe elliptical nodule Emphysematous change Electronically signed by: Brenna Saenz 10/12/2016 4:32 PM CDT
[2016-10-12 17:02] VITALS: BP 100/50; O2SAT 100
== END 2016-10-12 17:00 | disposition home or self-care (01) ==
LOC: ER 14:28
DX: R07.9 Chest pain, unspecified (principal); J44.9 Chronic obstructive pulmonary disease, unspecified; I10 Essential (primary) hypertension; C34.90 Malignant neoplasm of unspecified part of unspecified bronchus or lung; Z85.828 Personal history of other malignant neoplasm of skin; Z87.891 Personal history of nicotine dependence
CPT/HCPCS: 36415; 71275; 80053; 82550; 82553; 84484; 85025; 85379; J7030

== ENCOUNTER → 2016-10-24 | Outpatient (CLI) | payer MEDICARE, MEDICAID | LOC: LAB.O 07:58 | PROVIDERS: ATTEND Anesthesiology Pain Medicine | DX: R91.1 Solitary pulmonary nodule (principal); C34.90 Malignant neoplasm of unspecified part of unspecified bronchus or lung ==